=== PATIENT | male | born 1950 | race Caucasian/White ===

== ENCOUNTER → 2018-12-19 10:13 | Outpatient (CLI) | payer MEDICARE, SELFPAY ==
[2018-12-19 10:55] LABS: PSA,Total - Annual Screen 3.81 ng/mL (0.00-4.00)
== END ==
PROVIDERS: Referring Provider Urology; Visit Provider Urology
DX: Z12.5 Encounter for screening for malignant neoplasm of prostate (principal); N40.0 Benign prostatic hyperplasia without lower urinary tract symptoms
CPT/HCPCS: 36415; 84153; G0103

== ENCOUNTER → 2020-02-03 08:24 | Outpatient (CLI) | payer MEDICARE, SELFPAY ==
[2020-02-03 10:32] LABS: PSA,Total - Annual Screen 4.29 ng/mL (0.00-4.00)
== END ==
PROVIDERS: Referring Provider Urology; Visit Provider Urology
DX: Z12.5 Encounter for screening for malignant neoplasm of prostate (principal)
CPT/HCPCS: 36415; 84153; G0103

== ENCOUNTER → 2021-02-08 14:19 | Outpatient (CLI) | payer MEDICARE, SELFPAY ==
[2021-02-08 15:58] LABS: PSA,Total- Diagnostic 5.19 ng/mL (0.0-4.0)
== END ==
PROVIDERS: Referring Provider Urology; Visit Provider Urology
DX: R97.20 Elevated prostate specific antigen [PSA] (principal)
CPT/HCPCS: 36415; 84153

== ENCOUNTER 2021-09-20 10:34 | Outpatient (CLI) | payer MEDICARE, SELFPAY ==
--- NOTE | 2021-09-20 10:43 | RAD_ITS ---
EXAM: XR ABDOMEN, 1 VIEW CLINICAL INDICATION: BPH WITH UTI TECHNIQUE: Frontal supine view of the abdomen/pelvis. This report was created using [employer] report generation technology. COMPARISON: None. FINDINGS: LOWER THORAX: No acute pathology. GASTROINTESTINAL TRACT: Stool throughout the colon. Non-obstructive. No bowel or stomach distention. ORGANS: There are calcified phleboliths in the pelvis. This makes differentiation with distal ureteral stones difficult. No organomegaly. BONES/JOINTS: No acute pathology. SOFT TISSUES: No acute pathology. OTHER FINDINGS: Metal clips in the pelvis may suggest prior prostatectomy changes. RAD/Abdomen Single View IMPRESSION: Stool throughout the colon. Electronically Signed: Presley Stringer MD at 15:51 EST ,
== END 2021-09-20 23:59 | disposition home or self-care (01) ==
PROVIDERS: Referring Provider Urology; Visit Provider Urology
DX: N40.1 Benign prostatic hyperplasia with lower urinary tract symptoms (principal)
CPT/HCPCS: 74018

== ENCOUNTER 2021-11-02 11:53 | Observation (INO) | payer MEDICARE, SELFPAY ==
--- NOTE | 2021-10-31 08:58 | EKG12_ITS ---
Test Reason : PRE OP Blood Pressure : / mmHG Vent. Rate : 063 BPM Atrial Rate : 063 BPM P-R Int : 136 ms QRS Dur : 084 ms QT Int : 392 ms P-R-T Axes : 011 079 083 degrees QTc Int : 401 ms Normal sinus rhythm Normal ECG Confirmed by KRYSTEN INFANTE, JENNIFER ([id number]), health editor BEULAH CUELLAR ([id number]) on 10/31/2021 1:55:22 PM Referred By: Gonzalez Ray Confirmed By:JENNIFER BASHIR MD
[2021-11-02] VITALS (11 sets, daily range): BP systolic 99–123; BP diastolic 49–77; PULSE 52–72; RESP 15–18; TEMP 36.1–36.6; O2SAT 93–100; BMI 24.2
[2021-11-02] MEDS: Lactated Ringers 1,000 ML 15 ML IV (09:24)
[2021-11-02] MEDS: Cefazolin 2 GM in 0.9% Normal Saline 100 ML IV (10:07)
--- NOTE | 2021-11-02 10:40 | PROS_PTH ---
PATIENT: MATTHIEU GALAN LOC: MS3 U#:[id number] AGE/SX: 71/M ROOM: [facility] [place]02[place]: Dr. Gonzalez Ray MD : 1950 BED: 1 DIS: 11/03/2021 SPEC #: [id number] RECD: 11/02/21 14:04 STATUS: WILBERT TAPIAElyse #: [id number] ENRIQUE: 11/02/21 10:[address]: Gonzalez Ray DEPT: SURGICAL PATHOLOGY RECD BY: Carol Campos Tissues: Prostate, NOS Procedures: Surgery Specimen Level IV HEADER OPERATION: Cysto, TUR prostate, Olympus PRE-OP DIAGNOSIS: Obstructing moderate hyperplasia TISSUE SUBMITTED: Prostate tissue MICROSCOPIC DIAGNOSIS Prostate tissue, transurethral resection: Benign prostatic hyperplasia, glandular and stromal type. Focal mild chronic inflammation. SJ:dalia 11/04/2021 MICROSCOPIC DESCRIPTION Slides are reviewed. GROSS DESCRIPTION Received is one container labeled with the patient's name and designated prostate tissue. The specimen consists of multiple irregular fragments of pink-hinton, rubbery, soft tissue that in aggregate weigh 24.1 gm and measure in aggregate 7 x 7 x 3 cm. Multiple metallic clips are also noted. Insurance Attorney tissue is submitted in ten cassettes. / SJ:dalia 11/03/2021 TC:5 CPT: 02374
--- NOTE | 2021-11-02 11:54 | HP.PCM_ITS ---
HPI - General HPI Narrative MATTHIEU GALAN, is a 71 M who presents for a turp [facility] Medical History (Updated 10/28/21 @ 11:35 by Mayuri Zuniga) Diverticulosis High cholesterol History of gastroesophageal reflux (GERD) History of IBS History of stress test Non-smoker PONV (postoperative nausea and vomiting) Wears glasses Home Medications Jersey Tea 2 cap PO/SL BID 10/28/21 [History Last Taken Unknown] North Korean Sydnie 1.5 tab PO/SL QHS 10/28/21 [History Last Taken Unknown] ascorbic acid (vitamin C) [Vitamin C] 500 mg PO BID 10/28/21 [History Last Taken Unknown] aspirin 81 mg PO DAILY 10/28/21 [History Last Taken 10/25/21] doxazosin [Cardura] 4 mg PO QHS 10/28/21 [History Last Taken Unknown] turmeric 1 tab PO/SL DAILY 10/28/21 [History Last Taken Unknown] ciprofloxacin HCl [Cipro] 500 mg PO BID #10 tab 11/02/21 [Rx Last Taken Unknown] Allergy/AdvReac Type Severity Reaction Status Date / Time Penicillins [PCN] Allergy Hives Verified 11/02/21 09:11 Sulfa (Sulfonamide Allergy Hives Verified 11/02/21 09:11 Antibiotics) Surgical History (Updated 10/28/21 @ 11:24 by Mayuri Zuniga) History of colonoscopy History of hand surgery History of hemorrhoidectomy History of hernia repair History of urologic surgery Social History Smoking Status: Never smoker Vital Signs Vital Signs Vital Signs: 11/02/21 09:13 11/02/21 09:14 Temperature 97.4 F L Temperature Source Temporal Pulse Rate 71 Respiratory Rate 18 Respiratory Pattern Normal Blood Pressure 112/66 Blood Pressure Mean 81 Blood Pressure Source Monitor Blood Pressure Position Semi-Fowlers Blood Pressure Location Left Arm Pulse Ox 100 Oxygen Delivery Method Room Air Weight Weight: 76.657 kg Body Mass Index (BMI) 24.2
--- NOTE | 2021-11-02 11:55 | OP.PCM_ITS ---
Report of Operation Date of Procedure: 11/02/21 Pre-Operative Diagnosis: bph with obstruction Post-Operative Diagnosis: same Surgery/Procedure Performed:: TURP Description of Surgical Findings:: In the preoperative setting I discussed with the patient how the surgery would be done with expect afterwards. We discussed how a prostate resection is done and we discussed the risk of the surgery including, bleeding, infection, retrograde ejaculation, changes with ejaculation or intercourse,. We discussed the possibility that the resection of the prostate may not alleviate his urinary symptoms. We discussed the small risk of developing scar tissue along the urethral channel and strictures. We also discussed the chance of the prostate could grow back and he may need further surgery or treatment in the future for prostate problems. Patient was taken back to the operating room, timeout procedure was performed, he was identified and marked and placed on the operating room table. He underwent general anesthesia. He was placed in dorsolithotomy position. Penis and testicles were prepped and draped in usual sterile fashion. Went into the bladder using the visual obturator with a resectoscope. Once inside the bladder identified the right and left ureteral orifice. I then identified the prostate and the anatomy of the prostate. I marked out the area of the sphincter and the verumontanum was identified. I then proceeded with the prostate resection first resected the median lobe. And then resected the right lobe of the prostate. Then to resect the left lobe of the prostate. I then resected the apical tissue of the prostate. This was a complete resection of all obstructive tissue to improve voiding and relieve obstruction. I then made sure that there was no injury to the sphincter or the verumontanum was still intact. At the end of the resection all the chips were Ellik out of the bladder. I then identified the left and right ureteral orifice and these were confirmed to be in good position and effluxing and not injured. The resectoscope was removed, a 22 Serbian catheter was placed into the bladder on continuous irrigation. And the urine was fairly light pink color and draining normally. He was taken back to the PACU in good condition. CPT 73494 Surgeon: sona Type of Anesthesia: General Drains: 22fr [address] way Admit VTE Documentation VTE Present on Admission: No VTE Mechan Device Prophylaxis: SCD's VTE Pharm Prophylaxis ordered?: No
--- NOTE | 2021-11-02 11:55 | PCM.DC ---
Discharge Instructions Diet Discharge Diet: No restrictions Activity Discharge Activity: Return to Normal Activity and May Not Drive (while taking narcotic pain medications.) Dressing / Incision Call your doctor if you observe: Fever of 101 or Higher Follow Up Care Please Follow Up With: Gonzalez Ray MD When: Call [phone] for an appointment Test Results: Test results from this visit will be discussed in further detail at your follow-up appointment, if applicable. Discharge Plan Admission Primary Reason for Your Visit: Turp Attending Provider: Gonzalez Ray Instructions Patient Instructions: TURP Home Recovery Discharge Orders/Prescriptions Prescriptions: New ciprofloxacin HCl [Cipro] 500 mg tablet 500 mg PO BID Qty: 10 RF: 0 Continued ascorbic acid (vitamin C) [Vitamin C] 500 mg Tablet 500 mg PO BID RF: 0 doxazosin [Cardura] 4 mg Tablet 4 mg PO QHS RF: 0 aspirin 81 mg Capsule 81 mg PO DAILY RF: 0 [place] Tea 2 cap PO/SL BID RF: 0 Japanese Sydnie 1.5 tab PO/SL QHS RF: 0 turmeric 1 tab PO/SL DAILY RF: 0 Referrals / Follow Up: ALFONZO ANDERSON [Other] Gonzalez Ray MD [STAFF PHYSICIAN] - Disposition Disposition (needs filled in before D/C Order can be placed): Home, Self Care
[2021-11-02] MEDS: Ibuprofen 600 MG Tablet PO ×2 (14:47→21:34)
[2021-11-02] MEDS: Doxazosin 4 MG Tablet PO (21:21)
[2021-11-02] MEDS: Ciprofloxacin 500 MG Tablet PO (21:21)
[2021-11-03 03:15] VITALS: BP 91/55; PULSE 63; RESP 18; TEMP 36.8; O2SAT 95
[2021-11-03] MEDS: Ibuprofen 600 MG Tablet PO (04:00)
[2021-11-03 08:42] VITALS: BP 95/57; PULSE 63; RESP 18; TEMP 36.8; O2SAT 95
[2021-11-03] MEDS: Ciprofloxacin 500 MG Tablet PO (09:38)
[2021-11-03 10:56] VITALS: BP 95/57; PULSE 63; RESP 16; TEMP 36.8; O2SAT 95
== END 2021-11-03 11:34 | disposition home or self-care (01) ==
LOC: SDC 16:40 → MS3 16:40
PROVIDERS: Admitting Provider Urology; Referring Provider Urology; Visit Provider Urology
PROC: (CPT 52601; principal; 2021-11-02 10:30)
DX: N40.1 Benign prostatic hyperplasia with lower urinary tract symptoms (principal); E78.00 Pure hypercholesterolemia, unspecified; N13.8 Other obstructive and reflux uropathy; K21.9 Gastro-esophageal reflux disease without esophagitis; Z79.899 Other long term (current) drug therapy; Z79.82 Long term (current) use of aspirin; R35.1 Nocturia; R35.0 Frequency of micturition; Z87.19 Personal history of other diseases of the digestive system
CPT/HCPCS: 52601; 00914; 88305; 93005; 99218; J7120; G0378; J2405